=== PATIENT | female | born 1945 | race Caucasian/White ===

== ENCOUNTER 2016-04-30 08:14 | Inpatient (IN) | payer OTHER ==
[~2016-04-30] VITALS: Ht 157.5 cm; Wt 95.9 kg
[~2016-04-30 08:14] MED LIST: ASPCH81X PO; CHOL100010 PO; CMD5 PO; GABA-113 PO; INSU1.2I SC; INSUINJ14 SC; LPT/40 PO; LVNIS150 SQ; METO1TAB31 PO
[2016-04-30] MEDS ORDERED: SODIUM CHLORIDE 0.9% 1000ML 1,000 ML IV STA (08:33)
[2016-04-30] MEDS ORDERED: SODIUM CHLORIDE 0.9% 250ML 250 ML IV STA (08:33)
[2016-04-30] MEDS ORDERED: METOPROLOL TARTRATE 1 MG/ML VIAL IV STA ×2 (08:33→10:19)
[2016-04-30] MEDS ORDERED: DILTIAZEM HCL 5 MG/ML 5 ML VIAL IV STA (08:36)
--- NOTE | 2016-04-30 08:44 | EMERGENCY ROOM VISIT NOTE ---
History Report prepared by Mendoza: Joshua Guillaume Under the Supervision of: Dr. Lizette Nance M.D. First contact with patient: 08:26 Chief Complaint: SHORTNESS OF BREATH Stated Complaint: SOB, TACHYCARDIA Nursing Triage Summary: Pt reports rapid heart rate, sob, dizziness/lightheadedness since Sat. Pt states she was told last year when this happens to increase her doseage of Lopressor which she did without relief. Hx of open heart, aortic valve surgery, triple bypass, rapid a.fib. Pt takes Coumadin. History of Present Illness The patient is a 70 year old female who presents to the Emergency Room with complaints of persistent rapid heart rate for the past 4 days. The constant tachycardia started four days ago when she took her heart rate and it was 120. She started doubling up on her Metoprolol as recommended. She took 200 mg yesterday without any relief of her symptoms. She notes that yesterday her heart rate went up to 131. The patient did not take any Metoprolol today. The patient also complains of nausea and shortness of breath. She is also on Coumadin and notes her levels have not been checked. She has been taking the recommended dosages. She denies chest pain. Source of History: patient Onset: 4 days ago Position: other (global) Timing: other (persistent and constant) Associated Symptoms: + SOB, + nausea, No chest pain Review of Systems See HPI for pertinent positives & negatives. A total of 10 systems reviewed and were otherwise negative. Past Medical & Surgical Medical Problems: (1) Atrial fibrillation with RVR (2) CAD (coronary artery disease) (3) CKD (chronic kidney disease), stage III (4) DM type 2 (diabetes mellitus, type 2) (5) Dyslipidemia (6) HTN (hypertension) (7) TIA (transient ischemic attack) Surgical Problems: (1) Aortic valve replaced (2) H/O bilateral breast reduction surgery (3) History of (4) Hx of appendectomy (5) S/P carotid endarterectomy (6) S/P partial hysterectomy (7) S/P triple vessel bypass Family History Diabetes mellitus FATHER MOTHER BROTHER SISTER Stroke MOTHER Social History Smoking Status: Never Smoker Alcohol Use: none Marital Status: Housing Status: lives with family Occupation Status: retired Current/Historical Medications Scheduled Aspirin (Aspirin Chewable), 81 MG PO QPM Atorvastatin (Lipitor), 40 MG PO QPM Cholecalciferol (Vitamin D3), 1,000 UNITS PO DAILY Gabapentin (Neurontin), 300 MG PO BID Insulin Glargine (Toujeo Solostar), 27 UNITS SC QPM Metoprolol Succinate (Toprol Xl), 1 TAB PO BID Warfarin Sod (Jantoven), 7.5 MG PO 4XWK Warfarin Sod (Coumadin), 5 MG PO 3XWK Scheduled PRN Insulin Aspart (Novolog Flexpen), 1 DOSE SC UD PRN for SLIDING SCALE Allergies Coded Allergies: Empagliflozin (Verified Adverse Reaction, Mild, N/V/D, 02/18/16) Exenatide (Verified Adverse Reaction, Mild, N/V/D, 02/18/16) Physical Exam Vital Signs Date Time Temp Pulse Resp B/P Pulse Ox O2 Delivery O2 Flow Rate FiO2 04/30/16 09:34 79 20 109/64 92 Room Air 04/30/16 09:06 66 04/30/16 09:05 66 14 98/66 92 Room Air 04/30/16 08:54 133 04/30/16 08:18 36.5 113 20 118/81 96 Room Air Physical Exam Vital signs reviewed. General: Chronically ill-appearing, obese, in no significant distress. HEENT: No scleral icterus, PERRLA, neck supple. Atraumatic. Cardiovascular: Tachycardic, no extra sounds. Pulmonary: Clear to auscultation bilaterally, normal work of breathing. Abdomen: Soft, nontender, nondistended, positive bowel sounds. Musculoskeletal: Atraumatic, no peripheral edema. Neurologic: Patient awake alert and oriented x 3, full strength in all 4 extremities. Cranial nerves 2 through 12 grossly intact. Skin: Warm, dry, no rash Medical Decision & Procedures ER Provider Diagnostic Interpretation: X-ray results as stated below per interpretation by me and the radiologist: CHEST ONE VIEW PORTABLE HISTORY: Atrial fibrillation. Tachycardia. COMPARISON: Chest 02/18/2016. FINDINGS: There are low lung volumes. The heart remains mildly enlarged. Old, healed left-sided rib fractures. No pleural effusions. No pneumothorax. There is mild diffuse interstitial thickening, unchanged. A few linear densities at the left lung base persist and may represent scarring or atelectasis. IMPRESSION: No change in the mild cardiomegaly and mild diffuse interstitial thickening. Electronically signed by: John Gregory M.D. 04/30/2016 9:06 AM Dictated Date/Time: 04/30/2016 9:04 AM Laboratory Results Test 04/30/16 08:38 Immature Granulocyte % (Auto) 0.2 % White Blood Count 11.25 K/uL (4.8-10.8) Red Blood Count 4.90 M/uL (4.2-5.4) Hemoglobin 13.8 g/dL (12.0-16.0) Hematocrit 40.6 % (37-47) Mean Corpuscular Volume 82.9 fL (80-100) Mean Corpuscular Hemoglobin 28.2 pg (25-34) Mean Corpuscular Hemoglobin Concent 34.0 g/dl (32-36) Platelet Count 236 K/uL (130-400) Mean Platelet Volume 10.4 fL (7.4-10.4) Neutrophils (%) (Auto) 64.3 % Lymphocytes (%) (Auto) 25.4 % Monocytes (%) (Auto) 8.2 % Eosinophils (%) (Auto) 1.5 % Basophils (%) (Auto) 0.4 % Neutrophils # (Auto) 7.24 K/uL (1.4-6.5) Lymphocytes # (Auto) 2.86 K/uL (1.2-3.4) Monocytes # (Auto) 0.92 K/uL (0.11-0.59) Eosinophils # (Auto) 0.17 K/uL (0-0.5) Basophils # (Auto) 0.04 K/uL (0-0.2) Immature Granulocyte # (Auto) 0.02 K/uL (0.00-0.02) Activated Partial Thromboplast Time 34.2 SECONDS (21.0-31.0) Partial Thromboplastin Ratio 1.3 Total Bilirubin 0.6 mg/dl (0.2-1) Direct Bilirubin < 0.1 mg/dl (0-0.2) Aspartate Amino Transf (AST/SGOT) 20 U/L (15-37) Alanine Aminotransferase (ALT/SGPT) 37 U/L (12-78) Alkaline Phosphatase 126 U/L (45-117) Total Protein 7.4 gm/dl (6.4-8.2) Albumin 3.3 gm/dl (3.4-5.0) Beta-Hydroxybutyric Acid 3.86 mg/dL (0.2-2.81) Thyroid Stimulating Hormone (TSH) 3.800 uIu/ml (0.300-4.500) Laboratory results per my review. Medications Administered Medications (Trade) Dose Ordered Sig/Grupo Route Start Time Stop Time Status Last Admin Dose Admin Sodium Chloride 1,000 ml @ 125 mls/hr Q8H STAT IV 04/30/16 08:33 04/30/16 14:08 DC 04/30/16 09:19 125 MLS/HR Sodium Chloride (Nss 250ml) 250 ml @ 999 mls/hr Q16M STAT IV 04/30/16 08:33 04/30/16 08:48 DC 04/30/16 08:33 999 MLS/HR Diltiazem HCl (Cardizem Inj) 20 mg NOW STAT IV 04/30/16 08:36 04/30/16 08:37 DC 04/30/16 08:46 20 MG ECG Indication: tachycardia Rate (beats per minute): 132 Rhythm: atrial flutter Findings: LBBB (incomplete), other (previous inferior infarct, repolarization abnormality) Change: Repeat ECG: Atrial Flutter with 4:1 AV conduction, rate of 66 ED Course 0832: Past medical records reviewed. The patient was evaluated in room A4. A complete history and physical examination was performed. 0833: Ordered NSS 250 ml @ 999 mls/hr IV, NSS 1000 ml @ 125 mls/hr IV. 0836: Ordered Cardizem Inj 20 mg IV. 0915: At this time, I discussed the patient's case with Doretha Villalpando PA-C - Internal Medicine [facility] and she agreed to accept the patient for further evaluation. Medical Decision DDx: Acute coronary syndrome, pulmonary embolus, aortic dissection, musculoskeletal pain, pneumonia, pleural effusion, pneumothorax, arrhythmia. This pt was evaluated and appeared to be in no distress. IV access was obtained and lab work was drawn. Pt was placed on the telemetry monitor. EKG reveals a rapid atrial flutter w LBBB. She was gently hydrated with NSS. Pt records were reviewed. She has had good results with IV cardizem and as she has recently increased her metoprolol at home, 20 mg IV cardizem was given with better control. Lab work reveals a mild leukocytosis, elevation in troponin. Pt was d/w the hospitalist service for further management. Consults Time Called: 909 Consulting Physician: Doretha Villalpando PA-C - Internal Medicine [facility] Returned Call: 09 At this time, I discussed the patient's case with Doretha Villalpando PA-C and she agreed to accept the patient for further evaluation. Impression Primary Impression: Atrial fibrillation with RVR Additional Impression: Elevated troponin Scribe Attestation The scribe's documentation has been prepared under my direction and personally reviewed by me in its entirety. I confirm that the note above accurately reflects all work, treatment, procedures, and medical decision making performed by me. Departure Information Dispostion Being Evaluated By Hospitalist Referrals Luh Jack D.O. (PCP) Problem Qualifiers
[2016-04-30 08:47] LABS: BASO % 0.4 %; BASO ABS # 0.04 K/uL (0-0.2); COMPLETE YES; EOS % 1.5 %; HEMATOCRIT 40.6 % (37-47); IG% 0.2 %; LYMPH % 25.4 %; LYMPH ABS # 2.86 K/uL (1.2-3.4); MEAN CELL VOLUME 82.9 fL (80-100); MEAN CORPUSCULAR HEMOGLOBIN 28.2 pg (25-34); MEAN PLATELET VOLUME 10.4 fL (7.4-10.4); MONO % 8.2 %; NEUT % 64.3 %; PLATELET COUNT 236 K/uL (130-400); WHITE BLOOD COUNT 11.25 K/uL (4.8-10.8)
[2016-04-30 08:56] LABS: INR 2.2 (0.9-1.1); PARTIAL THROMBOPLASTIN RATIO 1.3; PROTHROMBIN TIME (PATIENT) 24.8 SECONDS (9.0-12.0)
[2016-04-30 09:02] LABS: ALT/SGPT 37 U/L (12-78); BLOOD UREA NITROGEN 33 mg/dl (7-18); BUN/CREATININE RATIO 23.7 (10-20); CALCIUM 8.9 mg/dl (8.5-10.1); CARBON DIOXIDE 21 mmol/L (21-32); CHLORIDE 104 mmol/L (98-107); MAGNESIUM 2.1 mg/dl (1.8-2.4); POTASSIUM 4.7 mmol/L (3.5-5.1); SODIUM 138 mmol/L (136-145)
[2016-04-30] MEDS ORDERED: CHOL1000 PO (09:08)
[2016-04-30] MEDS ORDERED: WARF7.5T4 PO (09:08)
[2016-04-30] MEDS ORDERED: NVLGIPEN SC (09:08)
[2016-04-30] MEDS ORDERED: CMD5 PO (09:08)
--- NOTE | 2016-04-30 09:08 | DIAGNOSTIC IMAGING REPORT ---
CHEST ONE VIEW PORTABLE HISTORY: Atrial fibrillation. Tachycardia. COMPARISON: Chest 02/18/2016. FINDINGS: There are low lung volumes. The heart remains mildly enlarged. Old, healed left-sided rib fractures. No pleural effusions. No pneumothorax. There is mild diffuse interstitial thickening, unchanged. A few linear densities at the left lung base persist and may represent scarring or atelectasis. IMPRESSION: No change in the mild cardiomegaly and mild diffuse interstitial thickening. Electronically signed by: John Gregory M.D. 04/30/2016 9:06 AM Dictated Date/Time: 04/30/2016 9:04 AM
[2016-04-30 09:10] LABS: GLUCOSE 304 mg/dl (70-99)
[2016-04-30 09:13] LABS: ALKALINE PHOSPHATASE 126 U/L (45-117); AST/SGOT 20 U/L (15-37); CKMB/CK RATIO 2.3 (0-3.0)
[2016-04-30 09:26] LABS: BETA-HYDROXYBUTYRATE 3.86 mg/dL (0.2-2.81)
[2016-04-30 09:44] VITALS: O2SAT 92; BMI 38.7
[2016-04-30] MEDS ORDERED: ACETAMINOPHEN 325 MG TAB PO PRN (10:00)
[2016-04-30] MEDS ORDERED: NITROGLYCERIN 0.4 MG SL PER TAB CHARGE SL PRN (10:00)
[2016-04-30] MEDS ORDERED: ONDANSETRON INJ 2 MG/ML 2 ML VIAL IV PRN (10:00)
[2016-04-30] MEDS ORDERED: METOPROLOL SUCC 50MG EXT REL TAB PO STA (10:19)
[2016-04-30] MEDS ORDERED: METOPROLOL TARTRATE 1 MG/ML VIAL ONE (10:28)
[2016-04-30] MEDS ORDERED: METOPROLOL SUCC 50MG EXT REL TAB PO ONE (10:28)
[2016-04-30] MEDS ORDERED: GLUCOSE 40% GEL 15 GM TUBE PO PRN (10:30)
[2016-04-30] MEDS ORDERED: DEXTROSE 50% 50 ML SYR IV PRN (10:30)
[2016-04-30] MEDS ORDERED: GLUCOSE 10 TABS/TUBE PO PRN (10:30)
[2016-04-30] MEDS ORDERED: GLUCAGON FOR INJ 1 MG VIAL SQ PRN (10:30)
--- NOTE | 2016-04-30 10:58 | History and Physical ---
History & Physical Date & Time of Service: Apr 30, 2016 at 10:15 Chief Complaint: Sob, Tachycardia Primary Care Physician: Luh Jack D.O. History of Present Illness Source: patient, clinic records, hospital records Patient seen and examined. 70 year old female with PMHx of Afib/flutter, CAD s/ p CABG, AVR, carotid stensois, IDDM, CKD stage 3, HTN, and HLD presents to the ED complaining of tachycardia x 4 days. Patient states that she woke up 4 nights ago with palpitations, she states that the last time she had an episode she was told by cardiology to increase her metoprolol and see if it goes away. Patient usually states that she takes Metoprolol XL 25mg BID. She has increased this to 100mg BID but states her palpitations have persisted. She reports associated mild SOB, and dizziness. She denies fevers, chills, URI symptoms, chest pain, nausea, vomiting, diarrhea, dysuria, calf pain and edema. Patient was admitted in January 2016 with similar symptoms and overnight converted to NSR. In the ED patient is tachycardic to the 130s in Aflutter. VS are otherwise stable, lytes are stable, TSH is normal, Troponin is 0.1. She received IVFs and 20mg IV Cardizem. HR improved to the 60s but has since returned to the 120- 140s. She will be observed for further workup and treatment. Past Medical/Surgical History Medical Problems: (1) CAD (coronary artery disease) Permanent Comment: 2014 - CABG Status: Chronic (2) CKD (chronic kidney disease), stage III Status: Chronic (3) DM type 2 (diabetes mellitus, type 2) Status: Chronic (4) Dyslipidemia Status: Chronic (5) HTN (hypertension) Status: Chronic (6) TIA (transient ischemic attack) Status: Chronic Surgical Problems: (1) Aortic valve replaced Permanent Comment: 03/09/[address] Marciano Stokes bioprosthetic Status: Resolved (2) H/O bilateral breast reduction surgery Permanent Comment: 1989 Status: Resolved (3) History of Permanent Comment: 1970 Status: Resolved (4) Hx of appendectomy Permanent Comment: 1965 Status: Resolved (5) S/P carotid endarterectomy Permanent Comment: left Status: Resolved (6) S/P partial hysterectomy Status: Resolved (7) S/P triple vessel bypass Permanent Comment: 03/09/[address] Marciano Stokes Status: Resolved Family History Diabetes mellitus FATHER MOTHER BROTHER SISTER Stroke MOTHER Social History Smoking Status: Never Smoker Alcohol Use: none Marital Status: Housing status: lives with family Occupational Status: retired Immunizations History of Influenza Vaccine: Yes Influenza Vaccine Date: Jan 17, 2016 History of Tetanus Vaccine?: Yes Tetanus Immunization Date: Nov 29, 2013 History of Pneumococcal: Yes Pneumococcal Date: Apr 19, 2015 Allergies Coded Allergies: Empagliflozin (Verified Adverse Reaction, Mild, N/V/D, 02/18/16) Exenatide (Verified Adverse Reaction, Mild, N/V/D, 02/18/16) Home Medications Scheduled Aspirin (Aspirin Chewable), 81 MG PO QPM Atorvastatin (Lipitor), 40 MG PO QPM Cholecalciferol (Vitamin D3), 1,000 UNITS PO DAILY Gabapentin (Neurontin), 300 MG PO BID Insulin Glargine (Toujeo Solostar), 27 UNITS SC QPM Metoprolol Succinate (Toprol Xl), 1 TAB PO BID Warfarin Sod (Jantoven), 7.5 MG PO 4XWK Warfarin Sod (Coumadin), 5 MG PO 3XWK Scheduled PRN Insulin Aspart (Novolog Flexpen), 1 DOSE SC UD PRN for SLIDING SCALE Review of Systems Constitutional: No chills, No fever Eyes: No worsening of vision ENT: No nasal symptoms Respiratory: + shortness of breath, No cough Cardiovascular: + palpitations, No chest pain, No edema Abdomen: No constipation, No diarrhea, No nausea, No pain, No vomiting Musculoskeletal: No calf pain, No swelling Genitourinary - Female: No dysuria Neurologic: + vertigo, No numbness/tingling Psychiatric: No anxiety Endocrine: No fatigue Hematologic / Lymphatic: No abnormal bleeding/bruising, No clotting problems Integumentary: No itch, No rash Allergic / Immunologic: No environmental allergies Physical Exam Vital Signs Date Time Temp Pulse Resp B/P Pulse Ox O2 Delivery O2 Flow Rate FiO2 04/30/16 09:44 92 Room Air 04/30/16 09:34 79 20 109/64 92 Room Air 04/30/16 09:06 66 04/30/16 09:05 66 14 98/66 92 Room Air 04/30/16 08:54 133 04/30/16 08:18 36.5 113 20 118/81 96 Room Air General Appearance: + pertinent finding (Very pleasant WD/WN 70 year old female lying in bed in NAD with son at bedside ) Head: normocephalic, atraumatic Eyes: PERRL, EOMI, sclerae normal ENT: hearing grossly normal, pharynx normal Neck: supple, no JVD Respiratory/Chest: chest non-tender, lungs clear, normal breath sounds, no respiratory distress, no accessory muscle use Cardiovascular: no edema, no gallop, no JVD, normal peripheral pulses, + tachycardia (rate 130s) Abdomen/GI: normal bowel sounds, non tender, soft Back: normal inspection, no muscle spasm Extremities/Musculoskelatal: no calf tenderness, normal capillary refill, no pedal edema Neurologic/Psych: alert, oriented x 3, + pertinent finding (no motor or sensory deficits noted on gross exam ) Skin: normal color, warm/dry, no rash Lymphatic: no adenopathy Diagnostics Laboratory Results Results Past 24 Hours Test 04/30/16 08:38 Range/Units White Blood Count 11.25 4.8-10.8 K/uL Red Blood Count 4.90 4.2-5.4 M/uL Hemoglobin 13.8 12.0-16.0 g/dL Hematocrit 40.6 37-47 % Mean Corpuscular Volume 82.9 80-100 fL Mean Corpuscular Hemoglobin 28.2 25-34 pg Mean Corpuscular Hemoglobin Concent 34.0 32-36 g/dl Platelet Count 236 130-400 K/uL Mean Platelet Volume 10.4 7.4-10.4 fL Neutrophils (%) (Auto) 64.3 % Lymphocytes (%) (Auto) 25.4 % Monocytes (%) (Auto) 8.2 % Eosinophils (%) (Auto) 1.5 % Basophils (%) (Auto) 0.4 % Neutrophils # (Auto) 7.24 1.4-6.5 K/uL Lymphocytes # (Auto) 2.86 1.2-3.4 K/uL Monocytes # (Auto) 0.92 0.11-0.59 K/uL Eosinophils # (Auto) 0.17 0-0.5 K/uL Basophils # (Auto) 0.04 0-0.2 K/uL RDW Standard Deviation 44.9 36.4-46.3 fL RDW Coefficient of Variation 14.7 11.5-14.5 % Immature Granulocyte % (Auto) 0.2 % Immature Granulocyte # (Auto) 0.02 0.00-0.02 K/uL Prothrombin Time 24.8 9.0-12.0 SECONDS Prothromb Time International Ratio 2.2 0.9-1.1 Activated Partial Thromboplast Time 34.2 21.0-31.0 SECONDS Partial Thromboplastin Ratio 1.3 Sodium Level 138 136-145 mmol/L Potassium Level 4.7 3.5-5.1 mmol/L Chloride Level 104 98-107 mmol/L Carbon Dioxide Level 21 21-32 mmol/L Anion Gap 13.0 3-11 mmol/L Blood Urea Nitrogen 33 7-18 mg/dl Creatinine 1.40 0.60-1.20 mg/dl Est Creatinine Clear Calc Drug Dose 41.0 ml/min Estimated GFR () 44.3 Estimated GFR (Non- 38.2 BUN/Creatinine Ratio 23.7 10-20 Random Glucose 304 70-99 mg/dl Calcium Level 8.9 8.5-10.1 mg/dl Magnesium Level 2.1 1.8-2.4 mg/dl Total Bilirubin 0.6 0.2-1 mg/dl Direct Bilirubin < 0.1 0-0.2 mg/dl Aspartate Amino Transf (AST/SGOT) 20 15-37 U/L Alanine Aminotransferase (ALT/SGPT) 37 12-78 U/L Alkaline Phosphatase 126 45-117 U/L Total Creatine Kinase 87 26-192 U/L Creatine Kinase MB 2.0 0.5-3.6 ng/ml Creatine Kinase MB Ratio 2.3 0-3.0 Troponin I 0.100 0-0.045 ng/ml Total Protein 7.4 6.4-8.2 gm/dl Albumin 3.3 3.4-5.0 gm/dl Beta-Hydroxybutyric Acid 3.86 0.2-2.81 mg/dL Thyroid Stimulating Hormone (TSH) 3.800 0.300-4.500 uIu/ml Diagnostic Radiology CXR Per radiologist read: IMPRESSION: No change in the mild cardiomegaly and mild diffuse interstitial thickening. EKG Aflutter [address] and T wave changes Impression Assessment and Plan 70 year old female with history of aflutter presents to the ED complaining of palpitations x 4 days RECURRENT PAROXYSMAL ATRIAL FLUTTER WITH RVR -observation in tele -Presents with Aflutter rate in the 130s despite increasing Metoprolol XL to 100mg BID for the last 3 days. Did not take medications this AM -Received Cardizem 20mg IV in ED HR improved but rebounded back to the 120s- 140s -Lytes, TSH stable -Cardiology consulted -spoke with Dr. Desir suggested Metoprolol XL 50mg po now and Lopressor 5mg IV now and he will see that patient input appreciated -serial Berkley, EKGs -repeat Echo -keep npo -additional rate control per cardiology -continue Coumadin - INR 2.2 -CBC, PRP, Mg daily ELEVATED TROPONIN, EKG CHANGES -0.1, ?demand ischemia in Aflutter with RVR -serial Berkley, EKGs -repeat Echo -cardiology consult placed IDDM WITH HYPERGLYCEMIA -last A1c 8.9, BSG 300 today -Continue basal insulin -SSI coverage -BSG AC HS -pharmacy consulted for dosing LEUKOCYTOSIS -mild 11K -no signs/symptoms of infection -check UA -follow CBC daily -no indication for Abx at this time CKD STAGE 3 -crea 1.4 baseline low 1s -received IVFs in ED -avoid nephrotoxic agents as able -follow PRP CAD S/P CABG -troponin elevation, no chest pain -Continue Statin, Aspirin -BB dosing per cardiology -serial Berkley -monitor in tele HTN -soft BPs after Cardizem -received IVFs in ED - antihypertensives per cardiology -monitor in tele HLD -check lipid panel -continue Statin H/O CAROTID ARTERY STENOSIS -s/p endarterectomy H/O AVR -[facility] [place] 2014 H/O TIA -continue Aspirin DVT PROPHYLAXIS: Coumadin CODE STATUS: FULL CODE DISPO:observation pending further workup Patient seen in collaboration with Dr. Shipman Attending Note: Patient is a 70 yr old female with PMHx of Afib/flutter, CAD s/p CABG, AVR, carotid stensois, IDDM, CKD stage 3, HTN, and HLD presents with palpitations since 4 days. Patient increased her metoprolol dose with no relief of symptoms. Reports associated mild SOB, nausea and dizziness. While in ED, patient was found to have atrial flutter and mild elevation of Troponin. Physical Exam: Vitals signs as noted above General Appearance:Moderately built and nourished, Obese, no apparent distress Head: normocephalic, Atraumatic Eyes: normal inspection, EOMI, PERRLA Neck: supple, Trachea midline Respiratory/Chest: Normal breath sounds, CTA, No accessory muscle use Cardiovascular: Tachycardia, No murmur Abdomen/GI:Soft, Non tender, Bowel sounds present Extremities/Musculoskelatal:normal inspection, no edema Neurologic/Psych:AAOX3, grossly no focal neurological deficits Skin:normal color,warm, Midline well healed surgical scar Assessment and Plan: Atrial flutter with RVR Failed increased BB dose at home TSH:wnl Planned to be started on amiodarone after discussion with cardiology Cardiology consulted INR therapeutic, continue Coumadin NPO after midnight-may need cardioversion Continue monitoring in Telemetry Elevated troponin likely secondary to tachycardia I personally reviewed the record. Patient is interviewed and examined at bedside. Patient's care is coordinated with Doretha Villalpando PA-C. Please refer to the documentation above for details of patient's presentation and for discussion of other issues. Advanced Directives Existing Living Will: Yes Existing Power of Tobacco Primer Machine Operator: Yes VTE Prophylaxis VTE Risk Assessment Done? Y/N: Yes Risk Level: Moderate
[2016-04-30] MEDS ORDERED: AMIODARONE IV BOLUS / DRIP IV STA (11:20)
[2016-04-30] MEDS ORDERED: AMIODARONE / D5W 100 ML IV SCH (12:00)
[2016-04-30] MEDS ORDERED: IV FLUIDS COMPLETED PRN (12:00)
[2016-04-30] MEDS ORDERED: AMIODARONE / D5W 200 ML IV SCH (12:10)
[2016-04-30] MEDS ORDERED: PHARMACY GLYCEMIC MGMT CONSULT SCH (12:10)
[2016-04-30 13:46] VITALS: O2SAT 92
[2016-04-30 13:50] VITALS: BP 130/62; PULSE 128; TEMP 36.7; O2SAT 97
--- NOTE | 2016-04-30 14:41 | Pharmacy Progress Note ---
Glycemic Control Intl Consult Date of Service Apr 30, 2016. Scope Glycemic Pharmacist consulted by Doretha Villalpando on 04/30/16 for glycemic control and to write orders per [facility] inpatient glycemic control protocol Objective Weight (Kilograms): 96.000 Accuchecks BSG (last 24hrs): Test 04/30/16 08:38 Random Glucose 304 mg/dl (70-99) Laboratory Data (last 24hrs) Test 04/30/16 08:38 Anion Gap 13.0 mmol/L BUN/Creatinine Ratio 23.7 Blood Urea Nitrogen 33 mg/dl Creatinine 1.40 mg/dl Potassium Level 4.7 mmol/L Sodium Level 138 mmol/L White Blood Count 11.25 K/uL Red Blood Count 4.90 M/uL Hemoglobin 13.8 g/dL Hematocrit 40.6 % Mean Corpuscular Volume 82.9 fL Mean Corpuscular Hemoglobin 28.2 pg Mean Corpuscular Hemoglobin Concent 34.0 g/dl Platelet Count 236 K/uL Mean Platelet Volume 10.4 fL Neutrophils (%) (Auto) 64.3 % Lymphocytes (%) (Auto) 25.4 % Monocytes (%) (Auto) 8.2 % Eosinophils (%) (Auto) 1.5 % Basophils (%) (Auto) 0.4 % Neutrophils # (Auto) 7.24 K/uL Lymphocytes # (Auto) 2.86 K/uL Monocytes # (Auto) 0.92 K/uL Eosinophils # (Auto) 0.17 K/uL Basophils # (Auto) 0.04 K/uL Recent Pertinent Medications Outpatient Anti-diabetic Regimen: * Toujeo 27 units SC qPM * Novolog sliding scale * A1c = 10.7 % on 02/19/16 Risk Factors for Insulin Resistance: * IVF: Amiodarone (mixed in D5W) * Diet: NPO Assessment & Plan ASSESSMENT: * ADA & AACE recommend a goal blood sugar range 140-180 mg/dl for the majority of critically ill & non-critically ill patients. However, more stringent targets may be selected in individual cases. * 70 yo F with T2DM known to our service, admitted with Aflutter w RVR. Patient is currently on amiodarone drip (mixed in D5W) and is NPO status. Only BSG this admission thus far is a random BSG with PRP this AM of 304 mg/dL * Spoke w RN - last Tosid dose was 27 units 04/29 HS. Will transition to Lantus as inpatient per protocol at reduced dose (2nd NPO status and based on pt history). * Will start Novolog at slightly tighter than weight-based estimate, based on patient history. * Will have goal BSG be slightly higher to ensure patient doesn't become hypoglycemic while NPO * Since only have 1 BSG to assess at this point, will not add overnight BSG checks for now. May consider adding if HS BSG still significantly elevated. PLAN FOR INPATIENT GLYCEMIC CONTROL: * Basal insulin with LANTUS 16 units SQ HS - 1/2 dose for BSG < 120 mg/dL * Correctional Insulin with NOVOLOG per scale ACHS or Q6hrs while NPO * Goal Range: Low 120 mg/dL - High 160 mg/dL * Correction Factor: 20 mg/dL/unit * Nutritional / Prandial insulin per carb ratio of 1 unit per 7 grams CHO consumed * Please note that the plan above was derived based on current level of insulin resistance and hospital stress. These recommendations are appropriate for inpatient admission only. Plan of care upon discharge will need to be reassessed to avoid potential outpatient hypo/hyperglycemia. Thank you.
[2016-04-30 15:05] VITALS: BP 120/77; PULSE 125; TEMP 36.8; O2SAT 94
[2016-04-30 15:08] LABS: CKMB/CK RATIO 3.2 (0-3.0)
--- NOTE | 2016-04-30 15:14 | CARDIOLOGY CONSULTATION ---
DATE OF CONSULTATION: 04/30/2016 REFERRING: Doretha Villalpando. PRIMARY CARE PHYSICIAN: Dr. Luh Jack. PRIMARY EMAIL MARKETING MANAGER: Dr. Ashkan Stark. REFERRAL DIAGNOSIS: Atrial flutter with rapid ventricular response. HISTORY OF PRESENT ILLNESS: The patient is a 70-year-old female with complex history, which includes prior coronary artery bypass grafting in February 2015 and aortic valve replacement. The patient at that time received a 21 mm Epic bioprosthesis in the aortic valve position, a left internal mammary artery graft to the LAD, a saphenous vein graft sequentially from the right coronary artery to the posterolateral branch. Postoperative course was notable for transient atrial fibrillation and wound infection with nonhealing sternal incision requiring multiple reoperations and extend antibiotic course. The patient was hospitalized in January 2016 with new onset atrial flutter with rapid ventricular response. The patient spontaneously converted to sinus rhythm while in hospital with rate slowing. She was initiated on anticoagulation at that time and continued on anticoagulation post-discharge. The patient had done well until approximately 4:00 a.m. on Thursday prior to this admission (4 days ago). The patient awakened from sleep with heart pounding rapidly in chest. She upward titrated her oral beta-rai at home, was on Toprol-XL 25 twice per day and gradually increased it to 100 mg twice per day on her own though without substantial improvement in heart rate. She noted mild dizziness, but notes no chest pain. Notes minimal dyspnea. Notes no prior chest discomfort, notes no fevers, chills or productive cough. Notes no acute weight gain or loss. Notes no melena, hematochezia, dysuria or hematuria. Has been taking medications as prescribed other than as noted above. Appetite and weight have been stable. Notes no sleep disruptions. The patient does not require oxygen supplementation at home. ALLERGIES: EMPAGLIFLOZIN AND EXENATIDE. MEDICATIONS: At home were aspirin 81 mg per day, atorvastatin 40 mg p.o. daily, cholecalciferol 1000 units daily, Neurontin 300 mg b.i.d., NovoLog insulin sliding scale, glargine insulin 27 units subQ q. p.m., Toprol-XL 25 mg twice per day with noted upward titration per patient, warfarin 7.5 mg 4 days per week, 5 mg Thursday, and Thursday. PAST SURGICAL HISTORY: Notable for aortic valve replacement and coronary bypass grafting as described as well as multiple postoperative surgeries to aid in wound healing with unstable sternal fixation. History of bilateral breast reduction surgery, , appendectomy, past left carotid endarterectomy and hysterectomy. FAMILY HISTORY: Positive for diabetes and stroke. SOCIAL HISTORY: The patient is a nonsmoker, nondrinker. PHYSICAL EXAMINATION: VITAL SIGNS: Heart rate of 110-130. She did slow transiently with IV diltiazem into the 60s, blood pressure is 107/83, O2 saturations 93% on room air. HEENT: Normocephalic and atraumatic. NECK: Thick. There is no distinct jugular venous distention. LUNGS: Reveal scattered crackles basilar bilaterally. CARDIOVASCULAR: Irregular, irregular. There is a grade 1-2/6 systolic murmur with rate tachycardic. ABDOMEN: Soft, nontender. There is no palpable hepatosplenomegaly. There is no hepatojugular reflux. EXTREMITIES: Without cyanosis or clubbing. There is no peripheral edema. LABORATORY DATA: Sodium is 138, potassium is 4.7, chloride is 104, bicarbonate is 21, BUN is 33, creatinine is 1.4. CK and MB fractions are normal. Troponin is mildly elevated at 0.1, TSH is 3.8. Albumin level is 3.3. Chest x-ray reveals mild diffuse increase in interstitial markings. EKG demonstrates atrial flutter with rapid ventricular response rate 132 on presentation. IMPRESSION: A 70-year-old female with complex history of underlying cardiac disease, prior coronary bypass grafting and aortic valve replacement in February 2015. The patient presents now having lapsed back into atrial flutter approximately 4 days presentation with rapid ventricular response despite upward titration of beta-rai. I have reviewed her echocardiogram from last admission, I suspect patient will warrant antiarrhythmic therapy to avoid recurrence of atrial arrhythmias with rapid rates and poor tolerance when present. Discussed this with the patient will begin with IV amiodarone and switch to oral in a.m. The patient will be allowed to eat today, be kept n.p.o. after midnight. Anticoagulation will be continued. If the patient does not spontaneously convert to sinus rhythm, may consider patient referral for synchronized electrocardioversion in the next 24-48 hours. We will follow closely in hospital. INR is therapeutic and has been therapeutic. Expect INR to rise as amiodarone is initiated. MTDD
[2016-04-30] MEDS ORDERED: WARFARIN SOD 7.5 MG TAB PO SCH (16:00)
[2016-04-30] MEDS: METOPROLOL TARTRATE 25 MG TAB PO SCH (17:00)
[2016-04-30] MEDS: AMIODARONE / D5W 200 ML IV SCH (18:09)
[2016-04-30] MEDS: INSULIN ASPART 100 UNITS/ML 3 ML PEN SC SCH ×2 (18:17→20:45)
[2016-04-30 18:42] VITALS: BP 104/68; PULSE 122; TEMP 37; O2SAT 94
[2016-04-30] MEDS: GABAPENTIN 300 MG CAP PO SCH (20:42)
[2016-04-30] MEDS: ATORVASTATIN 40 MG TAB PO SCH (20:42)
[2016-04-30] MEDS: ASPIRIN 81 MG CHEW PO SCH (20:42)
[2016-04-30] MEDS: INSULIN GLARGINE SOLOSTAR 100 UNITS/ML 3 ML PEN SC SCH (20:46)
[2016-04-30 20:55] LABS: CKMB/CK RATIO 2.4 (0-3.0)
[2016-04-30] MEDS ORDERED: INSULIN GLARGINE 27 UNIT SC SCH (21:00)
[2016-04-30 21:07] LABS: URINE APPEARANCE CLEAR (CLEAR); URINE BILIRUBIN NEG (NEG); URINE COLOR YELLOW; URINE EPITHELIAL CELL AUTO >30 /lpf (0-5); URINE NITRITE POS (NEG); URINE SPECIFIC GRAVITY 1.022 (1.000-1.030); UROBILINOGEN NEG (NEG); ZZUR CULT IF INDIC CLEAN CATCH YES
[2016-04-30 21:14] LABS: MANUAL MICROSCOPIC REQUIRED? NO; REVIEW REQ? NO
[2016-04-30] MEDS ORDERED: NURSING VERBAL MED ORDER ONE (22:30)
[2016-04-30 22:58] VITALS: BP 101/67; PULSE 112; PULSE 86; TEMP 36.7; O2SAT 93
[2016-04-30] MEDS ORDERED: METOPROLOL TARTRATE 25 MG TAB PO ONE (23:00)
[2016-05-01] MEDS ORDERED: INSULIN ASPART 100 UNITS/ML 3 ML PEN SC SCH (02:00)
[2016-05-01 04:22] VITALS: BP 112/70; PULSE 120; TEMP 36.4; O2SAT 93
[2016-05-01] MEDS: AMIODARONE / D5W 200 ML IV SCH (05:32)
[2016-05-01] MEDS: INSULIN ASPART 100 UNITS/ML 3 ML PEN SC SCH ×4 (07:00→20:52)
[2016-05-01 07:06] LABS: HEMATOCRIT 39.4 % (37-47); MEAN CELL VOLUME 83.8 fL (80-100); MEAN CORPUSCULAR HEMOGLOBIN 27.9 pg (25-34); MEAN CORPUSCULAR HGB CONC 33.2 g/dl (32-36); MEAN PLATELET VOLUME 11.1 fL (7.4-10.4); PLATELET COUNT 240 K/uL (130-400); WHITE BLOOD COUNT 11.08 K/uL (4.8-10.8)
[2016-05-01 07:13] LABS: INR 2.7 (0.9-1.1); PROTHROMBIN TIME (PATIENT) 30.2 SECONDS (9.0-12.0)
[2016-05-01 07:42] LABS: BUN/CREATININE RATIO 21.5 (10-20); CALCIUM 8.5 mg/dl (8.5-10.1); CREATININE 1.5 mg/dl (0.60-1.20); MAGNESIUM 2.1 mg/dl (1.8-2.4); POTASSIUM 4.1 mmol/L (3.5-5.1)
[2016-05-01 07:45] LABS: CHOLESTEROL/HDL RATIO 7.6
[2016-05-01 08:24] VITALS: BP 121/63; PULSE 84; TEMP 36.6; O2SAT 95
[2016-05-01] MEDS: METOPROLOL TARTRATE 25 MG TAB PO SCH ×2 (08:48→17:17)
[2016-05-01] MEDS: GABAPENTIN 300 MG CAP PO SCH ×2 (08:49→20:50)
[2016-05-01] MEDS: CHOLECALCIFEROL 1000 INTER.UNIT TAB PO SCH (08:49)
--- NOTE | 2016-05-01 11:38 | Progress Note ---
Internal Med Progress Note Date of Service: May 01, 2016. Provider Documentation: SUBJECTIVE: Patient is seen and examined at bedside. She denies any chest pain, nausea, dizziness, SOB. She is a little anxious about the cardioversion. OBJECTIVE: Vital Signs-as noted below Physical Exam: General Appearance:Moderately built and nourished, Obese, no apparent distress Head: normocephalic, Atraumatic Eyes: normal inspection, EOMI, PERRLA Neck: supple, Trachea midline Respiratory/Chest: Normal breath sounds, CTA, No accessory muscle use Cardiovascular: Tachycardia, No murmur Abdomen/GI:Soft, Non tender, Bowel sounds present Extremities/Musculoskelatal:normal inspection, no edema Neurologic/Psych:AAOX3, grossly no focal neurological deficits Skin:normal color,warm, Midline well healed surgical scar Lab data as noted below. ASSESSMENT & PLAN: Patient is a 70 yr old female with PMHx of Afib/flutter, CAD s/p CABG, AVR, carotid stensois, IDDM, CKD stage 3, HTN, and HLD presents with palpitations since 4 days. Patient increased her metoprolol dose with no relief of symptoms. ATRIAL FLUTTER WITH RVR Failed increased BB dose at home TSH:wnl Continue amiodarone ggt per cardiology INR therapeutic, continue Coumadin NPO after midnight-for possible cardioversion tomorrow Continue monitoring in Telemetry Elevated troponin likely secondary to tachycardia ECHO:pending ELEVATED TROPONIN, EKG CHANGES Likely secondary to Aflutter with RVR cardiology on board POSSIBLE UTI: FU Urine culture Start on IV ceftriaxone Mild leukocytosis, denies urinary symptoms IDDM WITH HYPERGLYCEMIA Last A1c 8.9, Uncontrolled at time of admission Continue basal insulin SSI coverage Accu checks pharmacy consulted for dosing CKD III Cr levels at baseline avoid nephrotoxic agents as able continue to monitor CAD S/P CABG troponin elevation, no chest pain Continue Statin, Aspirin BB dosing per cardiology HTN Stable Continue to monitor HLD continue Statin H/O CAROTID ARTERY STENOSIS -s/p endarterectomy H/O AVR [facility] [place] 2014 H/O TIA continue Aspirin, statins DVT Px: On Coumadin, INR therapeutic CODE STATUS: FULL CODE Vital Signs: Date Time Temp Pulse Resp B/P Pulse Ox O2 Delivery O2 Flow Rate FiO2 05/01/16 08:24 36.6 84 18 121/63 95 05/01/16 08:00 Room Air 05/01/16 04:22 36.4 120 18 112/70 93 Room Air 05/01/16 04:00 Room Air 04/30/16 23:59 Room Air 04/30/16 22:58 36.7 112 18 101/67 93 Room Air 04/30/16 20:00 Room Air 04/30/16 18:42 37.0 122 20 104/68 94 Room Air 04/30/16 16:00 Room Air 04/30/16 15:05 36.8 125 22 120/77 94 Room Air 04/30/16 13:50 36.7 128 22 130/62 97 Room Air 04/30/16 13:46 125 19 144/98 92 04/30/16 13:15 125 144/98 92 Room Air 04/30/16 13:00 121 19 91 04/30/16 12:58 146/96 04/30/16 12:49 126 15 125/96 93 Room Air 04/30/16 12:45 125 23 92 04/30/16 12:31 124 20 111/85 92 04/30/16 12:21 132 19 119/92 93 Room Air Lab Results: Results Past 24 Hours Test 04/30/16 14:25 04/30/16 16:19 04/30/16 20:08 04/30/16 20:10 Range/Units Total Creatine Kinase 73 70 26-192 U/L Creatine Kinase MB 2.3 1.7 0.5-3.6 ng/ml Creatine Kinase MB Ratio 3.2 2.4 0-3.0 Troponin I 0.145 0.110 0-0.045 ng/ml Bedside Glucose 250 222 70-90 mg/dl Test 04/30/16 20:50 05/01/16 02:34 05/01/16 06:07 05/01/16 06:48 Range/Units Urine Color YELLOW Urine Appearance CLEAR CLEAR Urine pH 5.0 4.5-7.5 Urine Specific [place] 1.022 1.000-1.030 Urine Protein NEG NEG Urine Glucose (UA) 1+ NEG Urine Ketones NEG NEG Urine Occult Blood 1+ NEG Urine Nitrite POS NEG Urine Bilirubin NEG NEG Urine Urobilinogen NEG NEG Urine Leukocyte Esterase NEG NEG Urine WBC (Auto) 1-5 0-5 /hpf Urine RBC (Auto) 0-4 0-4 /hpf Urine Hyaline Casts (Auto) 1-5 0-5 /lpf Urine Epithelial Cells (Auto) >30 0-5 /lpf Urine Bacteria (Auto) 1+ NEG Bedside Glucose 139 186 70-90 mg/dl White Blood Count 11.08 4.8-10.8 K/uL Red Blood Count 4.70 4.2-5.4 M/uL Hemoglobin 13.1 12.0-16.0 g/dL Hematocrit 39.4 37-47 % Mean Corpuscular Volume 83.8 80-100 fL Mean Corpuscular Hemoglobin 27.9 25-34 pg Mean Corpuscular Hemoglobin Concent 33.2 32-36 g/dl RDW Standard Deviation 46.1 36.4-46.3 fL RDW Coefficient of Variation 14.9 11.5-14.5 % Platelet Count 240 130-400 K/uL Mean Platelet Volume 11.1 7.4-10.4 fL Prothrombin Time 30.2 9.0-12.0 SECONDS Prothromb Time International Ratio 2.7 0.9-1.1 Sodium Level 140 136-145 mmol/L Potassium Level 4.1 3.5-5.1 mmol/L Chloride Level 106 98-107 mmol/L Carbon Dioxide Level 22 21-32 mmol/L Anion Gap 12.0 3-11 mmol/L Blood Urea Nitrogen 32 7-18 mg/dl Creatinine 1.50 0.60-1.20 mg/dl Est Creatinine Clear Calc Drug Dose 38.2 ml/min Estimated GFR () 40.8 Estimated GFR (Non- 35.2 BUN/Creatinine Ratio 21.5 10-20 Random Glucose 180 70-99 mg/dl Calcium Level 8.5 8.5-10.1 mg/dl Magnesium Level 2.1 1.8-2.4 mg/dl Triglycerides Level 174 0-150 mg/dl Cholesterol Level 221 0-200 mg/dl HDL Cholesterol 29 mg/dl LDL Cholesterol, Calculated 157 mg/dl VLDL Cholesterol, Calculated 35 mg/dl Cholesterol/HDL Ratio 7.6 Test 05/01/16 11:06 Range/Units Bedside Glucose 197 70-90 mg/dl Microbiology Results 04/30/16 Urine Culture - Preliminary, Resulted Gram Negative Bacilli
[2016-05-01 11:43] VITALS: BP 104/75; PULSE 66; TEMP 36.8; O2SAT 96
[2016-05-01] MEDS ORDERED: PERFLUTREN LIPID MICROSPHERE (DEFINITY) IV ONE (11:55)
--- NOTE | 2016-05-01 12:00 | CARDIOLOGY PROGRESS NOTE ---
DATE: 05/01/2016 DATE: 05/01/2016. The patient seen and examined. Chart, medications, telemetry reviewed. SUBJECTIVE: The patient notes no complaints this morning and remains tachycardic. Notes no chest pain or discomfort. Notes no orthopnea or worsening peripheral edema. OBJECTIVE: VITAL SIGNS: Heart rates 100-120, blood pressure is 121/63. NECK: Thick. There is no distinct jugular venous distention. LUNGS: Reveal few scattered crackles at the bases. Predominantly clear. CARDIOVASCULAR EXAMINATION: Irregularly irregular, rate 120, grade 2/6 systolic murmur. There is no diastolic murmur audible. ABDOMEN: Soft, nontender. EXTREMITIES: Without cyanosis or clubbing. There is no peripheral edema. LABORATORY DATA: White cell count is 11.0, hemoglobin is 13.1, hematocrit 39.4. Sodium is 140, potassium is 4.1, chloride is 106, bicarbonate 22, BUN is 32, creatinine is 1.5. Cholesterol is 221 with an LDL of 157, HDL 29. IMPRESSION: A 70-year-old female presents now with issues as follows: 1. Atrial flutter with rapid ventricular response. 2. History of prior aortic valve replacement, preserved left ventricular function. 3. Trivial troponin elevation. 4. Mild renal insufficiency. 5. History of hyperlipidemia. PLAN: Will be to discontinue IV amiodarone switch to oral amiodarone 200 mg 4 times per day, metoprolol has added little in rate control. We will discontinue after p.m. dose tonight. Anticipate referral for synchronized electrical cardioversion in a.m. Atorvastatin will warrant increasing on discharge if the patient has been compliant with usage. She remains anticoagulated with warfarin, but will now need downward adjustment in dosing with initiation of amiodarone therapy.
[2016-05-01] MEDS: AMIODARONE 200 MG TAB PO SCH ×3 (12:44→20:50)
[2016-05-01] MEDS: CEFTRIAXONE SOD INJ 1 GM in DEXTROSE 5% ADD-VANTAGE 50ML 50 ML IV SCH (12:44)
--- NOTE | 2016-05-01 13:00 | ECHOCARDIOGRAM REPORT ---
*NOTICE TO RECEIVING LIBERTARIAN AGENCY This information is strictly Confidential and protected under [place] law. [place] law prohibits you from making any further disclosure of this information unless further disclosure is expressly permitted by the written consent of the person to whom it pertains or is authorized by law. A general authorization for the release of medical or other information is not sufficient for this purpose. Hospital accepts no responsibility if the information is made available to any other person, INCLUDING THE PATIENT. Interpretation Summary * Name: VICKY CARRIZALES Study Date: 05/01/2016 12:20 PM BP: 121/63 mmHg * Patient Location: .2E\S\E212\S\1 HR: 100 * : 1945 (M/d/yyyy) Gender: Female Height: 62 in * Age: 70 yrs Ethnicity: [place] Weight: 212 lb * Ordering Physician: Doretha Villalpando * Referring Physician: Self, Referred * Performed By: Cece Urbano RDCS * * Reason For Study: AFLUTTER * BSA: 2.0 m2 * History: AFLUTTER * -- Conclusions -- * Atrial flutter with rapid ventricular response. * The left ventricle is normal in size. * There is moderate concentric left ventricular hypertrophy. * Septal motion is consistent with post-operative state. * There is mild global hypokinesis of the left ventricle. * Ejection Fraction = 45-50%. * There is a bioprosthetic aortic valve. * Bioprosthetic leaflets are thin and move normally. * There is moderate mitral annular calcification. * The mitral valvelleaflets are moderately calcified and restricted in mobility. * There is mild mitral regurgitation. * Mild to moderate mitral stenosisis suspected * Doppler findings do not suggest pulmonary hypertension. Procedure Details * A contrast injection of Definity was performed to improve assessment of LV function. * Contrast was injected into an intravenous site in the left arm. * One vial of Definity ultrasound contrast was diluted in normal saline to a total volume of 10 ml. A total of '2' ml of solution was administered during imaging. * Lot # [id number] of Definity utilized for procedure. * Expiration date APR 16. * The attending nurse who injected the contrast agent was JOSELUIS ESCOBAR. Left Ventricle * The left ventricle is normal in size. * There is moderate concentric left ventricular hypertrophy. * Ejection Fraction = 45-50%. * There is mild global hypokinesis of the left ventricle. * Septal motion is consistent with post-operative state. Atria * The left atrium is mildly dilated. Mitral Valve * There is moderate mitral annular calcification. The mitral valvelleaflets are moderately calcified and restricted in mobility. * Mild to moderate mitral stenosisis suspected * There is mild mitral regurgitation. Tricuspid Valve * The tricuspid valve is not well visualized, but is grossly normal. * Significant tricuspid regurgitation is absent. * Doppler findings do not suggest pulmonary hypertension. Aortic Valve * There is a bioprosthetic aortic valve. * Bioprosthetic leaflets are thin and move normally. * The gradient is normal for this prosthetic aortic valve. Pulmonic Valve * The pulmonic valve is not well visualized. Great Vessels * The aortic root is normal size. Pericardium/Pleural * There is no pericardial effusion. Great Vessels * The inferior vena cava is mildly dilated. MMode 2D Measurements and Calculations IVSd 1.2 cm IVSs 1.4 cm LVIDd 3.8 cm LVIDs 2.9 cm LVPWd 1.3 cm LVPWs 1.6 cm IVS/LVPW 0.90 FS 22.8 % EDV(Teich) 61.2 ml ESV(Teich) 32.7 ml EF(Teich) 46.5 % EDV(cubed) 54.0 ml ESV(cubed) 24.9 ml EF(cubed) 54.0 % % IVS thick 19.6 % % LVPW thick 19.5 % LV mass(C)d 166.8 grams LV mass(C)dI 85.2 grams/m\S\2 LV mass(C)s 156.7 grams LV mass(C)sI 80.0 grams/m\S\2 SV(Teich) 28.5 ml SI(Teich) 14.5 ml/m\S\2 SV(cubed) 29.2 ml SI(cubed) 14.9 ml/m\S\2 LA dimension 4.2 cm LVAd ap4 25.5 cm\S\2 LVLd ap4 7.3 cm EDV(MOD-sp4) 75.2 ml EDV(sp4-el) 75.8 ml LVAs ap4 18.3 cm\S\2 LVLs ap4 6.7 cm ESV(MOD-sp4) 42.5 ml ESV(sp4-el) 42.6 ml EF(MOD-sp4) 43.4 % EF(sp4-el) 43.8 % LVAd ap2 21.5 cm\S\2 LVLd ap2 6.8 cm EDV(MOD-sp2) 56.8 ml EDV(sp2-el) 58.1 ml LVAs ap2 15.7 cm\S\2 LVLs ap2 6.0 cm ESV(MOD-sp2) 33.4 ml ESV(sp2-el) 34.9 ml EF(MOD-sp2) 41.1 % EF(sp2-el) 40.0 % LVLd %diff -7.32 % EDV(MOD-bp) 68.0 ml LVLs %diff -12.26 % ESV(MOD-bp) 37.7 ml EF(MOD-bp) 44.5 % SV(MOD-sp4) 32.6 ml SI(MOD-sp4) 16.7 ml/m\S\2 SV(MOD-sp2) 23.3 ml SI(MOD-sp2) 11.9 ml/m\S\2 SV(MOD-bp) 30.3 ml SI(MOD-bp) 15.5 ml/m\S\2 SV(sp4-el) 33.2 ml SI(sp4-el) 16.9 ml/m\S\2 SV(sp2-el) 23.2 ml SI(sp2-el) 11.9 ml/m\S\2 Doppler Measurements and Calculations Ao V2 max 217.0 cm/sec Ao max PG 18.8 mmHg Ao max PG (full) 17.0 mmHg Ao V2 mean 146.1 cm/sec Ao mean PG 10.0 mmHg Ao mean PG (full) 9.1 mmHg Ao V2 VTI 41.3 cm LV V1 max PG 1.9 mmHg LV V1 mean PG 0.99 mmHg LV V1 max 68.2 cm/sec LV V1 mean 46.9 cm/sec LV V1 VTI 16.7 cm TR max cheko 196.7 cm/sec
[2016-05-01 13:05] VITALS: Ht 157.5 cm; Wt 95.9 kg
[2016-05-01] MEDS ORDERED: WARFARIN SOD 5 MG TAB PO SCH (16:00)
[2016-05-01 16:03] VITALS: BP 103/71; PULSE 124; TEMP 36.8; O2SAT 92
[2016-05-01 20:13] VITALS: BP 104/73; PULSE 125; TEMP 36.7; O2SAT 92
[2016-05-01] MEDS: ASPIRIN 81 MG CHEW PO SCH (20:50)
[2016-05-01] MEDS: ATORVASTATIN 40 MG TAB PO SCH (20:50)
[2016-05-01] MEDS: INSULIN GLARGINE SOLOSTAR 100 UNITS/ML 3 ML PEN SC SCH (20:52)
[2016-05-02] VITALS (11 sets, daily range): BP systolic 88–129; BP diastolic 60–95; PULSE 60–126; TEMP 36.4–36.9; O2SAT 74–97
[2016-05-02 07:13] LABS: BASO % 0.3 %; BASO ABS # 0.03 K/uL (0-0.2); COMPLETE YES; EOS % 2.6 %; IG% 0.1 %; LYMPH % 20.3 %; MEAN CELL VOLUME 83.3 fL (80-100); MEAN CORPUSCULAR HEMOGLOBIN 27.4 pg (25-34); MEAN CORPUSCULAR HGB CONC 32.8 g/dl (32-36); MONO % 8.9 %; NEUT % 67.8 %; PLATELET COUNT 245 K/uL (130-400); RED BLOOD COUNT 4.68 M/uL (4.2-5.4); WHITE BLOOD COUNT 10.35 K/uL (4.8-10.8)
[2016-05-02 07:45] LABS: BUN/CREATININE RATIO 23.7 (10-20); CALCIUM 8.8 mg/dl (8.5-10.1); CREATININE 1.6 mg/dl (0.60-1.20); POTASSIUM 4.2 mmol/L (3.5-5.1)
[2016-05-02] MEDS ORDERED: FENTANYL CITRATE INJ 50 MCG/1 ML 2 ML VIAL ONE (09:49)
[2016-05-02] MEDS ORDERED: MIDAZOLAM HCL 5 MG/ML 1 ML VIAL ONE (09:49)
[2016-05-02] MEDS: INSULIN ASPART 100 UNITS/ML 3 ML PEN SC SCH ×2 (09:49→12:00)
--- NOTE | 2016-05-02 10:50 | Procedure Note ---
Pre-Mod Sedation Assessment General Date of Moderate Sedation: May 02, 2016. Vital Signs: Vital Signs Past 12 Hours Date Time Temp Pulse Resp B/P Pulse Ox O2 Delivery O2 Flow Rate FiO2 05/02/16 10:30 60 10 113/64 95 4.0 05/02/16 10:25 61 10 115/70 97 6.0 05/02/16 10:22 124 12 94/73 74 Nasal Cannula 6.0 05/02/16 10:19 124 18 122/87 96 Nasal Cannula 4.0 05/02/16 10:18 123 18 129/95 97 Ambu-Bag 4.0 05/02/16 10:17 122 18 128/93 97 Nasal Cannula 4.0 05/02/16 07:48 36.9 126 18 107/72 96 Room Air 05/02/16 05:19 36.8 123 18 98/69 93 Room Air 05/02/16 00:05 36.7 122 18 89/62 93 Room Air 88/60 05/02/16 00:01 Room Air Review Cardiovascular: regular rate, rhythm, no edema, no JVD, normal peripheral pulses, + tachycardia, + systolic murmur, + gallop/S4 Abdomen: normal bowel sounds, non tender, soft, no organomegaly, no pulsatile mass Lungs: chest non-tender, lungs clear, normal breath sounds, no respiratory distress, no accessory muscle use Airway Class: II Pre-Sedation Airway Assessment Oral Cavity: Dentures Smoking Status: Never Smoker Notes The planned sedation has been discussed with the patient and consent obtained. I have identified the patient, determined the appropriateness of sedation and have assessed the patient immediately prior to the procedure. All medicine(s) and interventions are by my order.
--- NOTE | 2016-05-02 10:52 | Procedure Note ---
Post-Mod Sedation Assessment General Date of Moderate Sedation May 02, 2016. Vital Signs: Vital Signs Past 12 Hours Date Time Temp Pulse Resp B/P Pulse Ox O2 Delivery O2 Flow Rate FiO2 05/02/16 10:30 60 10 113/64 95 4.0 05/02/16 10:25 61 10 115/70 97 6.0 05/02/16 10:22 124 12 94/73 74 Nasal Cannula 6.0 05/02/16 10:19 124 18 122/87 96 Nasal Cannula 4.0 05/02/16 10:18 123 18 129/95 97 Ambu-Bag 4.0 05/02/16 10:17 122 18 128/93 97 Nasal Cannula 4.0 05/02/16 07:48 36.9 126 18 107/72 96 Room Air 05/02/16 05:19 36.8 123 18 98/69 93 Room Air 05/02/16 00:05 36.7 122 18 89/62 93 Room Air 88/60 05/02/16 00:01 Room Air Review - Discharge Criteria Vital Signs Stable: Yes Alert/Oriented/Conversant: Yes Returned to Baseline Mental St: Yes Nausea Absent/Minimal: Yes Pain/Discomfort/Absent/Minimal: Yes Normal/Baseline Respirations: Yes Active Bleeding?: No Pt Received D/C Instructions: No Prescriptions Given: None
--- NOTE | 2016-05-02 10:53 | [facility] Post Operative Brief Note ---
Immediate Operative Summary Operative Date May 02, 2016. Pre-Operative Diagnosis atrial flutter with rvr Post-Operative Diagnosis same Procedure(s) Performed DC cardioversion Surgeon Karthik Medical Assistant Instructor Surgeon(s) Jered HUGGINS Estimated Blood Loss none Findings successful cardioversion to sinus rhythm Specimens none Anesthesia Versed 2mg, Fentanyl 50mg Complication(s) None Disposition tele
--- NOTE | 2016-05-02 10:58 | Procedure Note ---
Procedure Note Informed consent obtained pt prepped in room 212 adequate sedation achieved with Versed 2mg and Fentanyl 50mg 360 J of direct current energy delivered with successful cardioversion to sinus rhythm tolerated well no complications see nurses notes for start/stop time recover in 212 ok to resume diet.
--- NOTE | 2016-05-02 11:09 | Cardiology Follow-Up ---
Subjective Subjective Date of Service: May 02, 2016. Pt evaluation today including: conversation w/ patient, physical exam, chart review, lab review, review of studies, review of inpatient medication list Additional Details: Pt seen and examined, states that she feels well. No events overnight. Denies cp , sob, palpitations, lightheadedness or dizziness. Tele reviewed: atrial flutter in 120's overnight. Problem List Medical Problems: (1) Atrial flutter Status: Acute (2) Atrial flutter with rapid ventricular response Status: Acute (3) Congestive heart failure Status: Acute (4) Diverticulitis Status: Acute (5) Elevated troponin Status: Acute (6) Hypotension Status: Acute Review of Systems Respiratory: No cough, No dyspnea at rest, No dyspnea on exertion, No hemoptysis, No problem reported, No see HPI, No shortness of breath, No sputum, No wheezing Cardiac: No PND, No chest pain, No claudication, No edema, No orthopnea, No palpitations, No problem reported, No see HPI Objective Vital Signs Last Vital Signs Documentation Date Time Temp Pulse Resp B/P Pulse Ox O2 Delivery O2 Flow Rate FiO2 05/02/16 10:30 60 10 113/64 95 4.0 05/02/16 10:22 Nasal Cannula 05/02/16 07:48 36.9 Physical Exam: General Appearance: WD/WN, no apparent distress Eyes: bilateral eyes EOMI, bilateral eyes PERRL, bilateral eyes normal inspection ENT: normal ENT inspection, hearing grossly normal, pharynx normal Neck: supple, no adenopathy, thyroid normal, no JVD, no carotid bruits, trachea midline Respiratory/Chest: chest non-tender, lungs clear, normal breath sounds, no respiratory distress, no accessory muscle use Cardiovascular: regular rate, rhythm, no edema, no JVD, no murmur, + tachycardia, + gallop/S4 Abdomen: normal bowel sounds, non tender, soft, no organomegaly Extremities: normal range of motion, non-tender, normal inspection, no pedal edema, no calf tenderness Neurologic/Psychiatric: grain blender II-XII nml as tested, no motor/sensory deficits, alert, normal mood/affect, oriented x 3 Skin: normal color, warm/dry, no rash Lymphatic: no adenopathy Assessment and Plan 1. atrial flutter with RVR received amiodarone load underwent successful cardioversion this AM cont coumadin, amio and metoprolol would d/c to home on amio 200mg bid f/u coumadin clinic as directed 2. troponin elevation secondary to #1 no further testing necessary 3. mild global hypokinesis likely secondary to #1 repeat echo in 1 month as outpatient ok to d/c to home no driving for 24 hours my office will call to arrange f/u with Dr. Stark and echo in 1 month
[2016-05-02] MEDS: CHOLECALCIFEROL 1000 INTER.UNIT TAB PO SCH (11:54)
[2016-05-02] MEDS: AMIODARONE 200 MG TAB PO SCH ×2 (11:54→13:00)
[2016-05-02] MEDS: GABAPENTIN 300 MG CAP PO SCH (11:54)
[2016-05-02] MEDS: CEFTRIAXONE SOD INJ 1 GM in DEXTROSE 5% ADD-VANTAGE 50ML 50 ML IV SCH (11:54)
[2016-05-02] MEDS: METOPROLOL TARTRATE 25 MG TAB PO SCH (11:55)
--- NOTE | 2016-05-02 13:22 | Progress Note ---
Internal Med Progress Note Date of Service: May 02, 2016. Provider Documentation: SUBJECTIVE: Patient is seen and examined at bedside. She had cardioversion this morning. States feeling much better after cardioversion. Denies any chest pain, palpitations, nausea, dizziness, SOB. OBJECTIVE: Vital Signs-as noted below Physical Exam: General Appearance:Moderately built and nourished, Obese, no apparent distress Head: normocephalic, Atraumatic Eyes: normal inspection, EOMI, PERRLA Neck: supple, Trachea midline Respiratory/Chest: Normal breath sounds, CTA, No accessory muscle use Cardiovascular: NSR, No murmur Abdomen/GI:Soft, Non tender, Bowel sounds present Extremities/Musculoskelatal:normal inspection, no edema Neurologic/Psych:AAOX3, grossly no focal neurological deficits Skin:normal color,warm, Midline well healed surgical scar Lab data as noted below. ASSESSMENT & PLAN: Patient is a 70 yr old female with PMHx of Afib/flutter, CAD s/p CABG, AVR, carotid stensois, IDDM, CKD stage 3, HTN, and HLD presents with palpitations since 4 days. Patient increased her metoprolol dose with no relief of symptoms. ATRIAL FLUTTER WITH RVR Failed increased BB dose at home S/P cardioversion: converted to NSR TSH:wnl Continue amiodarone, metoprolol INR therapeutic, continue Coumadin Continue monitoring in Telemetry Elevated troponin likely secondary to tachycardia Appreciate cariology help Needs follow up with in 1 month with ECHO Also follow up with coumadin clinic ECHO:mild global hypokinesis ECHO: * Atrial flutter with rapid ventricular response. * The left ventricle is normal in size. * There is moderate concentric left ventricular hypertrophy. * Septal motion is consistent with post-operative state. * There is mild global hypokinesis of the left ventricle. * Ejection Fraction = 45-50%. * There is a bioprosthetic aortic valve. * Bioprosthetic leaflets are thin and move normally. * There is moderate mitral annular calcification. * The mitral valvelleaflets are moderately calcified and restricted in mobility. * There is mild mitral regurgitation. * Mild to moderate mitral stenosisis suspected * Doppler findings do not suggest pulmonary hypertension. ELEVATED TROPONIN, EKG CHANGES Secondary to Aflutter with RVR No chest pain No signs of ischemia cardiology on board UTI: Urine culture: E.coli S/P IV ceftriaxone for 2 days. Switch to Keflex Mild leukocytosis, denies urinary symptoms IDDM WITH HYPERGLYCEMIA Last A1c 8.9, Uncontrolled at time of admission Continue basal insulin SSI coverage Accu checks pharmacy consulted for dosing CKD III Cr levels at baseline avoid nephrotoxic agents as able continue to monitor CAD S/P CABG troponin elevation, no chest pain Continue Statin, Aspirin BB dosing per cardiology HTN Stable Continue to monitor HLD continue Statin H/O CAROTID ARTERY STENOSIS -s/p endarterectomy [place] [facility] [place] TIA continue Aspirin, statins DVT Px: On Coumadin, INR therapeutic CODE STATUS: FULL CODE Disposition: Plan to DC home today Vital Signs: Date Time Temp Pulse Resp B/P Pulse Ox O2 Delivery O2 Flow Rate FiO2 05/02/16 12:00 Room Air 05/02/16 11:09 36.4 66 18 107/63 96 Room Air 05/02/16 10:30 60 10 113/64 95 4.0 05/02/16 10:25 61 10 115/70 97 6.0 05/02/16 10:22 124 12 94/73 74 Nasal Cannula 6.0 05/02/16 10:19 124 18 122/87 96 Nasal Cannula 4.0 05/02/16 10:18 123 18 129/95 97 Ambu-Bag 4.0 05/02/16 10:17 122 18 128/93 97 Nasal Cannula 4.0 05/02/16 08:05 Room Air 05/02/16 07:48 36.9 126 18 107/72 96 Room Air 05/02/16 05:19 36.8 123 18 98/69 93 Room Air 05/02/16 05:00 Room Air 05/02/16 00:05 36.7 122 18 89/62 93 Room Air 88/60 05/02/16 00:01 Room Air 05/01/16 20:13 36.7 125 18 104/73 92 Room Air 05/01/16 20:00 Room Air 05/01/16 16:03 36.8 124 18 103/71 92 Room Air 05/01/16 16:00 Room Air Lab Results: Results Past 24 Hours Test 05/01/16 16:03 05/01/16 20:14 05/02/16 06:54 05/02/16 11:22 Range/Units Bedside Glucose 177 137 156 70-90 mg/dl White Blood Count 10.35 4.8-10.8 K/uL Red Blood Count 4.68 4.2-5.4 M/uL Hemoglobin 12.8 12.0-16.0 g/dL Hematocrit 39.0 37-47 % Mean Corpuscular Volume 83.3 80-100 fL Mean Corpuscular Hemoglobin 27.4 25-34 pg Mean Corpuscular Hemoglobin Concent 32.8 32-36 g/dl Platelet Count 245 130-400 K/uL Mean Platelet Volume 11.0 7.4-10.4 fL Neutrophils (%) (Auto) 67.8 % Lymphocytes (%) (Auto) 20.3 % Monocytes (%) (Auto) 8.9 % Eosinophils (%) (Auto) 2.6 % Basophils (%) (Auto) 0.3 % Neutrophils # (Auto) 7.02 1.4-6.5 K/uL Lymphocytes # (Auto) 2.10 1.2-3.4 K/uL Monocytes # (Auto) 0.92 0.11-0.59 K/uL Eosinophils # (Auto) 0.27 0-0.5 K/uL Basophils # (Auto) 0.03 0-0.2 K/uL RDW Standard Deviation 45.9 36.4-46.3 fL RDW Coefficient of Variation 15.0 11.5-14.5 % Immature Granulocyte % (Auto) 0.1 % Immature Granulocyte # (Auto) 0.01 0.00-0.02 K/uL Sodium Level 141 136-145 mmol/L Potassium Level 4.2 3.5-5.1 mmol/L Chloride Level 108 98-107 mmol/L Carbon Dioxide Level 22 21-32 mmol/L Anion Gap 11.0 3-11 mmol/L Blood Urea Nitrogen 38 7-18 mg/dl Creatinine 1.60 0.60-1.20 mg/dl Est Creatinine Clear Calc Drug Dose 35.8 ml/min Estimated GFR () 37.7 Estimated GFR (Non- 32.5 BUN/Creatinine Ratio 23.7 10-20 Random Glucose 167 70-99 mg/dl Calcium Level 8.8 8.5-10.1 mg/dl
[2016-05-02] MEDS ORDERED: CRD200 PO (13:28)
[2016-05-02] MEDS ORDERED: NITR100C6 PO (13:28)
--- NOTE | 2016-05-02 13:34 | Discharge Instructions ---
Discharge Instructions Admission Reason for Admission: Atrial Fibrillation With Rvr Discharge Discharge Diagnosis / Problem: Atrial Flutter With RvR Discharge Goals Goal(s): Decrease discomfort, Improve function Activity Recommendations Activity Limitations: resume your previous activity Driving or Machine Use: resume 3 days after discharge . Instructions / Follow-Up Instructions / Follow-Up Follow up with in 1 week (PCP office will call for appointment) Follow up with on June 05 at 8:45AM Follow up with coumadin clinic for INR monitoring and coumadin dosing Please obtain ECHO on May 26 at 7:30AM at [facility] Complete the antibiotic course as precribed. Seek immediate medical attention if your symptoms reoccur or worsen. Current Hospital Diet Patient's current hospital diet: AHA Diet (Heart Healthy), Diabetes Type 1 Diet Discharge Diet Recommended Diet: AHA Diet (Heart Healthy), Diabetes Type 1 Diet Procedures Procedures Performed: DC cardioversion Pending Studies Studies pending at discharge: no Laboratory Results Hemoglobin A1c Test 02/19/16 05:40 Range/Units Estimated Average Glucose 260 mg/dl Hemoglobin A1c 10.7 H 4.5-5.6 % Lipid Panel Test 05/01/16 06:07 Range/Units Triglycerides Level 174 H 0-150 mg/dl Cholesterol Level 221 H 0-200 mg/dl HDL Cholesterol 29 mg/dl Cholesterol/HDL Ratio 7.6 LDL Cholesterol, Calculated 157 mg/dl Medical Emergencies . Who to Call and When: Medical Emergencies: If at any time you feel your situation is an emergency, please call 911 immediately. . Non-Emergent Contact Non-Emergency issues call your: Primary Care Provider, Air Launch Weapons Technician Call Non-Emergent contact if: you have a fever, your pain is unusual for you, you have any medication questions . . "Provider Documentation" section prepared by Paolo Shipman. VTE Core Measure Inpt VTE Proph given/why not?: Warfarin (Coumadin)
[2016-05-02] MEDS ORDERED: CEPH500C2 PO (13:47)
--- NOTE | 2016-05-02 20:29 | Discharge Summary ---
Discharge Summary Admission Date: May 01, 2016 at 11:21 Discharge Date: May 02, 2016 Discharge Disposition: Home Principal Diagnosis: Atrial flutter with rvr, S/P cardioversion Secondary Diagnoses/Problems: UTI:E.coli Procedures: Successful Cardioversion ECHO: * Atrial flutter with rapid ventricular response. * The left ventricle is normal in size. * There is moderate concentric left ventricular hypertrophy. * Septal motion is consistent with post-operative state. * There is mild global hypokinesis of the left ventricle. * Ejection Fraction = 45-50%. * There is a bioprosthetic aortic valve. * Bioprosthetic leaflets are thin and move normally. * There is moderate mitral annular calcification. * The mitral valvelleaflets are moderately calcified and restricted in mobility. * There is mild mitral regurgitation. * Mild to moderate mitral stenosisis suspected * Doppler findings do not suggest pulmonary hypertension. CXR: No change in the mild cardiomegaly and mild diffuse interstitial thickening Consultations: Cardiology Pending Studies/Follow-Up: Instructions / Follow-Up Follow up with in 1 week (PCP office will call for appointment) Follow up with on June 05 at 8:45AM Follow up with coumadin clinic for INR monitoring and coumadin dosing Please obtain ECHO on May 26 at 7:30AM at [facility] Complete the antibiotic course as precribed. Seek immediate medical attention if your symptoms reoccur or worsen. Medication Reconciliation New Medications: Cephalexin Monohydrate (Keflex) 500 Mg Cap 500 MG PO BID for 5 Days, #10 CAP Amiodarone HCl (Amiodarone HCl) 200 Mg Tab 200 MG PO BID for 30 Days, #60 TAB Continued Medications: Aspirin (Aspirin Chewable) 81 Mg Chew 81 MG PO QPM, TAB Atorvastatin (Lipitor) 40 Mg Tab 40 MG PO QPM Cholecalciferol (Vitamin D3) 1,000 Unit Tab 1000 UNITS PO DAILY for 90 Days, TAB 3 Refills Gabapentin (Neurontin) 300 Mg Cap 300 MG PO BID, CAP Insulin Aspart (Novolog Flexpen) 100 Units/Ml Inj 1 DOSE SC UD PRN for SLIDING SCALE Insulin Glargine (Toujeo Solostar) 300 Unit/Ml Inj 27 UNITS SC QPM Metoprolol Succinate (Toprol Xl) 25 Mg Tab 1 TAB PO BID for 30 Days, #60 TAB 5 Refills Warfarin Sod (Jantoven) 7.5 Mg Tab 7.5 MG PO 4XWK, TAB THURSDAY, THURSDAY, THURSDAY AND THURSDAY Warfarin Sod (Coumadin) 5 Mg Tab 5 MG PO 3XWK THURSDAY, & THURSDAY Admission Information HPI (per Admitting provider): Patient seen and examined. 70 year old female with PMHx of Afib/flutter, CAD s/ p CABG, AVR, carotid stensois, IDDM, CKD stage 3, HTN, and HLD presents to the ED complaining of tachycardia x 4 days. Patient states that she woke up 4 nights ago with palpitations, she states that the last time she had an episode she was told by cardiology to increase her metoprolol and see if it goes away. Patient usually states that she takes Metoprolol XL 25mg BID. She has increased this to 100mg BID but states her palpitations have persisted. She reports associated mild SOB, and dizziness. She denies fevers, chills, URI symptoms, chest pain, nausea, vomiting, diarrhea, dysuria, calf pain and edema. Patient was admitted in January 2016 with similar symptoms and overnight converted to NSR. In the ED patient is tachycardic to the 130s in Aflutter. VS are otherwise stable, lytes are stable, TSH is normal, Troponin is 0.1. She received IVFs and 20mg IV Cardizem. HR improved to the 60s but has since returned to the 120- 140s. She will be observed for further workup and treatment. Physical Exam (per Admitting): General Appearance: + pertinent finding (Very pleasant WD/WN 70 year old female lying in bed in NAD with son at bedside ) Head: normocephalic, atraumatic Eyes: PERRL, EOMI, sclerae normal ENT: hearing grossly normal, pharynx normal Neck: supple, no JVD Respiratory/Chest: chest non-tender, lungs clear, normal breath sounds, no respiratory distress, no accessory muscle use Cardiovascular: no edema, no gallop, no JVD, normal peripheral pulses, + tachycardia (rate 130s) Abdomen/GI: normal bowel sounds, non tender, soft Back: normal inspection, no muscle spasm Extremities/Musculoskelatal: no calf tenderness, normal capillary refill, no pedal edema Neurologic/Psych: alert, oriented x 3, + pertinent finding (no motor or sensory deficits noted on gross exam ) Skin: normal color, warm/dry, no rash Lymphatic: no adenopathy Hospital Course Patient is a 70 yr old female with PMHx of Afib/flutter, CAD s/p CABG, AVR, carotid stensois, IDDM, CKD stage 3, HTN, and HLD presents with palpitations since 4 days. Patient increased her metoprolol dose with no relief of symptoms. ATRIAL FLUTTER WITH RVR Failed increased BB dose at home S/P cardioversion: converted to NSR TSH:wnl Continue amiodarone, metoprolol INR therapeutic, continue Coumadin Continue monitoring in Telemetry Elevated troponin likely secondary to tachycardia Appreciate cariology help Needs follow up with in 1 month with ECHO Also follow up with coumadin clinic ECHO:mild global hypokinesis ECHO: * Atrial flutter with rapid ventricular response. * The left ventricle is normal in size. * There is moderate concentric left ventricular hypertrophy. * Septal motion is consistent with post-operative state. * There is mild global hypokinesis of the left ventricle. * Ejection Fraction = 45-50%. * There is a bioprosthetic aortic valve. * Bioprosthetic leaflets are thin and move normally. * There is moderate mitral annular calcification. * The mitral valvelleaflets are moderately calcified and restricted in mobility. * There is mild mitral regurgitation. * Mild to moderate mitral stenosisis suspected * Doppler findings do not suggest pulmonary hypertension. ELEVATED TROPONIN, EKG CHANGES Secondary to Aflutter with RVR No chest pain No signs of ischemia cardiology on board UTI: Urine culture: E.coli S/P IV ceftriaxone for 2 days. Switch to Nitrofurantoin Mild leukocytosis, denies urinary symptoms IDDM WITH HYPERGLYCEMIA Last A1c 8.9, Uncontrolled at time of admission Continue basal insulin SSI coverage Accu checks pharmacy consulted for dosing CKD III Cr levels at baseline avoid nephrotoxic agents as able continue to monitor CAD S/P CABG troponin elevation, no chest pain Continue Statin, Aspirin BB dosing per cardiology HTN Stable Continue to monitor HLD continue Statin H/O CAROTID ARTERY STENOSIS -s/p endarterectomy [place] [facility] [place] TIA continue Aspirin, statins DVT Px: On Coumadin, INR therapeutic CODE STATUS: FULL CODE Disposition: Plan to DC home today Total time spent on discharge = This includes examination of the patient, discharge planning, medication reconciliation, and communication with other providers. Discharge Instructions Discharge Instructions Admission Reason for Admission: Atrial Fibrillation With Rvr Discharge Discharge Diagnosis / Problem: Atrial Flutter With RvR UTI Discharge Goals Goal(s): Decrease discomfort, Improve function Activity Recommendations Activity Limitations: resume your previous activity Driving or Machine Use: resume 3 days after discharge . Instructions / Follow-Up Instructions / Follow-Up Follow up with in 1 week (PCP office will call for appointment) Follow up with on June 05 at 8:45AM Follow up with coumadin clinic for INR monitoring and coumadin dosing Please obtain ECHO on May 26 at 7:30AM at [facility] Complete the antibiotic course as precribed. Seek immediate medical attention if your symptoms reoccur or worsen. Current Hospital Diet Patient's current hospital diet: AHA Diet (Heart Healthy), Diabetes Type 1 Diet Discharge Diet Recommended Diet: AHA Diet (Heart Healthy), Diabetes Type 1 Diet Procedures Procedures Performed: DC cardioversion Pending Studies Studies pending at discharge: no Laboratory Results Hemoglobin A1c Test 02/19/16 05:40 Range/Units Estimated Average Glucose 260 mg/dl Hemoglobin A1c 10.7 H 4.5-5.6 % Lipid Panel Test 05/01/16 06:07 Range/Units Triglycerides Level 174 H 0-150 mg/dl Cholesterol Level 221 H 0-200 mg/dl HDL Cholesterol 29 mg/dl Cholesterol/HDL Ratio 7.6 LDL Cholesterol, Calculated 157 mg/dl Medical Emergencies . Who to Call and When: Medical Emergencies: If at any time you feel your situation is an emergency, please call 911 immediately. . Non-Emergent Contact Non-Emergency issues call your: Primary Care Provider, Sand Mill Operator Core Sand Call Non-Emergent contact if: you have a fever, your pain is unusual for you, you have any medication questions . . "Provider Documentation" section prepared by Paolo Shipman. VTE Core Measure Inpt VTE Proph given/why not?: Warfarin (Coumadin)
[2016-10-14] MEDS ORDERED: METO25TA3 PO (14:02)
[2016-10-14] MEDS ORDERED: AMIO200T4 PO (14:02)
[2016-10-14] MEDS ORDERED: WARF2.5T8 PO (14:02)
[2016-10-14] MEDS ORDERED: ATOR-26 PO (14:03)
[2016-10-14] MEDS ORDERED: ACET1TAB84 PO (14:05)
== END 2016-05-02 14:37 | disposition home or self-care (01) | DRG 309 ==
LOC: ENRESERVDT → ENRESERVTM → C.EDB 08:16 → C.2E 09:37 → OBSVTOIN 05-01 11:21
PROVIDERS: ADMIT Internal Medicine; ATTEND Internal Medicine
PROC: 5A2204Z Restoration of Cardiac Rhythm, Single (ICD-10-PCS; principal; 2016-05-02)
DX: I48.92 Unspecified atrial flutter (principal); N39.0 Urinary tract infection, site not specified; I48.91 Unspecified atrial fibrillation; Z79.01 Long term (current) use of anticoagulants; I25.10 Atherosclerotic heart disease of native coronary artery without angina pectoris; N18.3 Chronic kidney disease, stage 3 (moderate); E78.5 Hyperlipidemia, unspecified; E10.9 Type 1 diabetes mellitus without complications; B96.20 Unspecified Escherichia coli [E. coli] as the cause of diseases classified elsewhere; E10.65 Type 1 diabetes mellitus with hyperglycemia; E10.21 Type 1 diabetes mellitus with diabetic nephropathy; Z86.73 Personal history of transient ischemic attack (TIA), and cerebral infarction without residual deficits; Z95.1 Presence of aortocoronary bypass graft; Z95.2 Presence of prosthetic heart valve; Z79.82 Long term (current) use of aspirin

== ENCOUNTER → 2016-10-27 | Day surgery (SDC) | payer OTHER ==
[2016-10-14 14:06] VITALS: BMI 43.0
--- NOTE | 2016-10-14 14:48 | PAT Medication Instructions ---
Service Date Oct 14, 2016. Current Home Medication List Acetaminophen (Tylenol Arthritis Ext Rel), 1,300 MG PO PRN Amiodarone Hcl (Cordarone), 200 MG PO HS Aspirin (Aspirin Chewable), 81 MG PO HS Atorvastatin (Lipitor), 80 MG PO HS Cholecalciferol (Vitamin D3), 1,000 UNITS PO QAM Gabapentin (Neurontin), 300 MG PO BID Insulin Aspart (Novolog Flexpen), 1 DOSE SC UD PRN for SLIDING SCALE Insulin Glargine (Toujeo Solostar), 30 UNITS SC HS Metoprolol Succinate (Toprol Xl), 25 MG PO BID Warfarin Sod (Coumadin), 5 MG PO 4XWEEK Warfarin Sod (Jantoven), 2.5 MG PO 3XWEEK Medication Instructions For Your Scheduled Surgery - Check with surgeon/gore seamer/coumadin clinic for instructions: Aspirin (Aspirin Chewable), 81 MG PO HS Warfarin Sod (Coumadin), 5 MG PO 4XWEEK Warfarin Sod (Jantoven), 2.5 MG PO 3XWEEK - Hold the following medications the morning of surgery: Insulin Aspart (Novolog Flexpen), 1 DOSE SC UD PRN for SLIDING SCALE Cholecalciferol (Vitamin D3), 1,000 UNITS PO QAM - Take the following medications the morning of surgery with a sip of water: Metoprolol Succinate (Toprol Xl), 25 MG PO BID Gabapentin (Neurontin), 300 MG PO BID Acetaminophen (Tylenol Arthritis Ext Rel), 1,300 MG PO PRN (if needed) - Take the following medications as scheduled the night before surgery: Metoprolol Succinate (Toprol Xl), 25 MG PO BID Insulin Glargine (Toujeo Solostar), 30 UNITS SC HS Insulin Aspart (Novolog Flexpen), 1 DOSE SC UD PRN for SLIDING SCALE Gabapentin (Neurontin), 300 MG PO BID Atorvastatin (Lipitor), 80 MG PO HS Amiodarone Hcl (Cordarone), 200 MG PO HS Acetaminophen (Tylenol Arthritis Ext Rel), 1,300 MG PO PRN (if needed) If you have any questions please call us at [phone] or [phone] or [phone]
[2016-10-14 16:04] LABS: BUN/CREATININE RATIO 18.5 (10-20); CALCIUM 9.1 mg/dl (8.5-10.1); CREATININE 1.5 mg/dl (0.60-1.20)
[2016-10-14 16:19] LABS: BETA-HYDROXYBUTYRATE 0.7 mg/dL (0.2-2.81)
[2016-10-15 05:53] LABS: ESTIMATED AVERAGE GLUCOSE 263 mg/dl; HA1C FLAG Normal (Normal)
[~2016-10-27] VITALS: Ht 157.5 cm; Wt 107.7 kg
[~2016-10-27] MED LIST changes: +ACET1TAB84 PO; +AMIO200T4 PO; +ATOR-26 PO; +ATROPINE SULFATE 0.1 MG/ML 5ML SYR IV PRN; +BUPIVACAINE 0.5 % 5 MG/1 ML MPF 30ML VIAL ONE; +CEFAZOLIN 2000 MG/60 ML D5W IV SCH; +CEFAZOLIN SOD 1 GM VIAL ONE; +CHOL1000 PO; -CHOL100010 PO; +CONRAY 60% 50 ML VIAL ONE; +EpHEDrine SULFATE 50MG/5ML SYR ONE; +EpHEDrine SULFATE INJ 50 MG/ML AMP IV PRN; +FENTANYL CITRATE INJ 50 MCG/1 ML 2 ML VIAL IV PRN; +FENTANYL CITRATE INJ 50 MCG/1 ML 2 ML VIAL ONE; +GLYCOPYRROLATE INJ 0.2 MG/ML VIAL ONE; +HEPARIN SOD (PORCINE) 1000 UNIT/ML 10 ML VIAL ONE; +HYDROmorphone INJ 1 MG/ML SYR IV PRN; -INSUINJ14 SC; +LACTATED RINGER'S 1000ML 1,000 ML IV SCH; +LIDOCAINE HCL 2% 2 ML VIAL (20MG/ML) ONE; -LPT/40 PO; -LVNIS150 SQ; -METO1TAB31 PO; +METO25TA3 PO; +MIDAZOLAM HCL 1 MG/ML 2ML VIAL ONE; +MoRPHine SULFATE 4 MG/ML 1 ML CARP\\VIAL IV PRN; +NEOSTIGMINE METHYLSULFATE 5 MG/5 ML SYR ONE; +NVLGIPEN SC; +ONDANSETRON INJ 2 MG/ML 2 ML VIAL IV PRN; +ONDANSETRON INJ 2 MG/ML 2 ML VIAL ONE; +OXYCODONE/ACETAMINOPHEN 5-325 TAB PO PRN; +PROPOFOL IV EMULSION 10 MG/ML 20 ML VIAL IV ONE; +ROCURONIUM BROMIDE 10 MG/ML 5 ML VIAL ONE; +SODIUM CHLORIDE 0.9% 1000ML 1,000 ML IV SCH; +SODIUM CHLORIDE 0.9% INJ 10 ML VIAL ONE; +VASOPRESSIN 20 UNIT/ML VIAL ONE; +WARF2.5T8 PO
[2016-10-27 08:27] VITALS: BP 176/66; PULSE 67; TEMP 36.7; O2SAT 95; Ht 157.5 cm; Wt 107.7 kg
[2016-10-27 08:47] LABS: PROTHROMBIN TIME (PATIENT) 11.1 SECONDS (9.0-12.0)
--- NOTE | 2016-10-27 10:36 | History & Physical Bridge Note ---
H&P Re-Evaluation Bridge Note: I have examined the patient, reviewed the History & Physical and in the interval since the performance of the History & Physical I have noted the following changes of clinical significance: No changes noted
--- NOTE | 2016-10-27 12:16 | [facility] Post Operative Brief Note ---
Immediate Operative Summary Operative Date Oct 27, 2016. Pre-Operative Diagnosis Chronic cholycystitis and gallbladder sludge Post-Operative Diagnosis same as preoperative diagnosis Procedure(s) Performed laparoscopic cholecystectomy Surgeon Dr. Mckenzie Hearing Examiner Surgeon(s) Dr. Matt Estimated Blood Loss 5ml Findings See dictation Specimens A. Gallbladder Drains None Anesthesia General Complication(s) None Disposition Recovery Room / PACU
--- NOTE | 2016-10-27 12:34 | Discharge Instructions ---
Discharge Instructions Date of Service Oct 27, 2016. Admission Reason for Admission: Gallbladder Sludge Discharge Discharge Diagnosis / Problem: Same Discharge Goals Goal(s): Decrease discomfort Activity Recommendations Activity Limitations: per Instructions/Follow-up section Lifting Limitations: no more than 10 pounds (for 2 weeks) Shower/Bathe: tomorrow (Shower only) . Instructions / Follow-Up Instructions / Follow-Up Post-Surgical ~ Discharge Instructions Activity Recommendations: - lifting limitation: (10 pounds for 2 weeks), - exercise/sex/sports limit: (nonstrenuous for 2 weeks), - driving or machine use limit: (none for 1 week), - Shower/bathe limit: (may shower beginning tomorrow) Diet: - Resume previous diet SPECIAL CARE INSTRUCTIONS: - May shower in 24 hours. Let water run over area and pat dry. - Leave steri strips on for one week. - Call the surgeon's office with any questions or concerns - - (ex. temperature higher than 101 degrees F, excessive bleeding or pain). MEDICATIONS: - Resume previous medications unless instructed otherwise by your surgeon. - Ibuprofen 600 mg every 6 hours with food - Percocet 1 every 4 hours, as needed for pain FOLLOW UP VISIT: - If not already scheduled, please call the office to schedule a two week follow-up appointment. Office number Current Hospital Diet Patient's current hospital diet: Discharge Diet Recommended Diet: Diabetes Type 2 Diet Procedures Procedures Performed: laparoscopic cholecystectomy Pending Studies Studies pending at discharge: no Laboratory Results Hemoglobin A1c Test 10/14/16 15:00 Range/Units Estimated Average Glucose 263 mg/dl Hemoglobin A1c 10.8 H 4.5-5.6 % Medical Emergencies . Who to Call and When: Medical Emergencies: If at any time you feel your situation is an emergency, please call 911 immediately. . Non-Emergent Contact Non-Emergency issues call your: Primary Care Provider, Surgeon Call Non-Emergent contact if: your pain is worsening, wound has increased drainage, wound has increased redness . "Provider Documentation" section prepared by Randy Mckenzie. . VTE Core Measure Inpt VTE Proph given/why not?: Warfarin (Coumadin)
--- NOTE | 2016-10-27 12:56 | Anesthesiology Progress Note ---
Anesthesia Post Op Note Date & Time Oct 27, 2016 at 12:56 Vital Signs Pain Intensity: 0 Vital Signs Past 12 Hours Date Time Temp Pulse Resp B/P (MAP) Pulse Ox O2 Delivery O2 Flow Rate FiO2 10/27/16 12:50 56 18 158/94 94 Room Air 10/27/16 12:40 56 18 154/80 97 Mask 10 10/27/16 12:30 57 16 142/81 97 Mask 10 10/27/16 12:22 36.6 57 16 165/69 96 Mask 10 10/27/16 08:27 36.7 67 18 176/66 (102) 95 Room Air Notes Mental Status: alert / awake / arousable, participated in evaluation Pt Amnestic to Procedure: Yes Nausea / Vomiting: adequately controlled Pain: adequately controlled Airway Patency, RR, SpO2: stable & adequate BP & HR: stable & adequate Hydration State: stable & adequate Anesthetic Complications: no major complications apparent
[2016-10-27 13:10] VITALS: BP 150/65; PULSE 55; TEMP 36.4; O2SAT 95
[2016-10-27 13:40] VITALS: BP 158/73; PULSE 56; O2SAT 96
[2016-10-27 14:10] VITALS: BP 165/73; PULSE 54; TEMP 36.5; O2SAT 94
--- NOTE | 2016-10-27 15:01 | OPERATIVE REPORT ---
DATE OF OPERATION: 10/27/2016 PREOPERATIVE DIAGNOSES: Gallbladder sludge and chronic cholecystitis. POSTOPERATIVE DIAGNOSES: Same. PROCEDURE: Laparoscopic cholecystectomy. SURGEON: Dr. Randy Mckenzie. FINDINGS: The patient had some adhesions of the omentum to the undersurface of the right lobe of the liver. The gallbladder was free of adhesion. The cystic duct was not dilated nor was the gallbladder. The liver was of normal size and contour. The right hepatic artery was looping through the space behind the cystic duct. The visible bowel appeared normal. TECHNIQUE: The patient was given a general anesthetic and the area was prepped and draped in the usual sterile fashion. Transverse incision was made 4-5 cm above the umbilicus, carried down through the subcutaneous tissue to the fascia, which was grasped with 2 Kecia clamps and incised between. The peritoneum was identified, incised, and the introducers were placed bluntly. The abdomen was then insufflated to a pressure of 15 mmHg with carbon dioxide. The upper midline, mid clavicular and anterior axillary introducers were placed under direct vision through small skin incisions. Traction was placed superiorly on the liver and the adhesions to the right lobe were taken down using sharp and cautery dissection where appropriate until we could then grasp the fundus of the gallbladder and elevate it. The peritoneum overlying the lateral aspect of the infundibulum was taken down and then working anteriorly and into the triangle of Calot, which was opened. Further lymphatics and connective tissue were dissected until the cystic duct was identified. I was then able to skeletonize the medial and lateral crain and establish a plane behind it, allowing me to confidently confirm the junction of the cystic duct and gallbladder. Three clips were placed on the proximal cystic duct, one near the gallbladder and it was divided. Further dissection was then carried out posterior to where the cystic duct had been, at which time we could identify the right hepatic looping through that space. Further dissection of the gallbladder away from the liver on the lateral and medial sides of the upper infundibulum and lower body was performed in order to mobilize it and allow better mobility, which then allowed me to identify the cystic artery, which was branching off the anterior surface of that right hepatic. It was isolated, clamped twice proximally and once near the gallbladder and divided. Further dissection of the gallbladder away from the liver was performed with cautery and there were 2 other tubular structures that were either large lymphatics or more likely posterior branches of the artery, which were clamped and divided. The completion of dissection away from the liver was performed. The gallbladder was placed into an Endobag and brought out through the upper midline incision with ease. That introducer was replaced. Liver edge was elevated. The subdiaphragmatic and subhepatic spaces were irrigated and the irrigation was removed. The areas of dissection on the liver were inspected and there was no bleeding. The gallbladder bed of the liver was inspected and there was no bleeding. The previously placed clips were intact. Gas was allowed to escape and the introducers were removed. The fascia of the lower midline introducer site was closed with interrupted 0 Vicryl and skin of all the incisions was closed with 4-0 Monocryl in either an interrupted or running subcuticular fashion. The skin was anesthetized with 0.5% Marcaine. The skin was cleansed, dried, and benzoin placed. Steri-Strips applied. The estimated blood loss was 5 mL. Sponge, needle and instrument counts were correct prior to closure. The patient tolerated surgical procedure without complication and was transferred to recovery. I attest to the content of the Intraoperative Record and any orders documented therein. Any exception s are noted below.
[2016-10-27 15:20] VITALS: BP 165/64; PULSE 54; O2SAT 94
== END | disposition home or self-care (01) ==
LOC: C.ACU 07:45
PROVIDERS: ATTEND Surgery
DX: K80.10 Calculus of gallbladder with chronic cholecystitis without obstruction (principal); K82.8 Other specified diseases of gallbladder; I48.91 Unspecified atrial fibrillation; Z86.19 Personal history of other infectious and parasitic diseases; I65.29 Occlusion and stenosis of unspecified carotid artery; Z86.73 Personal history of transient ischemic attack (TIA), and cerebral infarction without residual deficits; E78.5 Hyperlipidemia, unspecified; E11.3311 Type 2 diabetes mellitus with moderate nonproliferative diabetic retinopathy with macular edema, right eye; Z79.01 Long term (current) use of anticoagulants; Z95.5 Presence of coronary angioplasty implant and graft; Z90.711 Acquired absence of uterus with remaining cervical stump; Z98.41 Cataract extraction status, right eye; Z98.42 Cataract extraction status, left eye; Z79.4 Long term (current) use of insulin; Z79.82 Long term (current) use of aspirin; E78.00 Pure hypercholesterolemia, unspecified; G47.33 Obstructive sleep apnea (adult) (pediatric); I25.10 Atherosclerotic heart disease of native coronary artery without angina pectoris; N18.3 Chronic kidney disease, stage 3 (moderate); I12.9 Hypertensive chronic kidney disease with stage 1 through stage 4 chronic kidney disease, or unspecified chronic kidney disease